=== PATIENT | male | born 1990 | race Caucasian/White ===

== ENCOUNTER 2020-03-18 11:30 | Outpatient (CLI) | payer BC, SELFPAY ==
--- NOTE | 2020-03-18 11:44 | ECG_ITS ---
[facility] Test Date: 2020-03-18 Pat Name: Henrique Cornejo Department: Room: Gender: Male Master Pilot: : 1990 Requested By: Aleah Cooper Order Number: [id number] German MD: Leonora Redding M.D. Interpretive Statements NAME OF STUDY: TREADMILL STRESS TEST INDICATION: Chest Pain, PROCEDURE: At the baseline, the patient's blood pressure was 143/76 with a heart rate of 64. The baseline electrocardiogram showed sinus bradycardia with a normal ST-T's. Some early repolarization changes. The patient exercised for 12 minutes and 31 seconds on a standard Luis protocol. Patient attained a maximum heart rate of 169 beats per minute( 88 % of the maximum predicted heart rate) with a blood pressure at the peak exercise of 214/104 mm Hg. The EKG at the peak exercise revealed no significant changes. Patient did not have any chest pain or any significant cardiac arrhythmias with the exercise During the recovery phase, there were no new changes. Blood pressure at the end of the recovery phase was 197/67 mm Hg with a heart rate of 85 per minute. CONCLUSION: 1. Normal EKG response to treadmill exercise 2. No exercise-induced chest pain or cardiac arrhythmia 3. Good exercise tolerance, attained a maximum of 17.2 METs 4. Hypertensive response to exercise Electronically Signed On 03-20-2020 18:17:15 CDT by Leonora Redding M.D. [email or web address]
[2020-03-18 11:59] VITALS: BMI 27.9
[2020-03-18 12:34] VITALS: BP 197/67; PULSE 96
== END 2020-03-18 11:31 | disposition home or self-care (01) ==
LOC: CDL 11:35
PROVIDERS: PCP Nurse Practitioner Family; Visit Provider Nurse Practitioner Family
DX: R07.9 Chest pain, unspecified (principal)
CPT/HCPCS: 93017

== ENCOUNTER 2021-01-05 08:56 | Emergency (ER) | payer BC, SELFPAY ==
[2021-01-05 08:57] VITALS: BP 169/85; PULSE 62; RESP 18; TEMP 37.5; O2SAT 95; BMI 26.5
--- NOTE | 2021-01-05 09:03 | W.ED.DENTAL ---
HPI - Dental/Oral General: Chief complaint: Dental/Oral Stated complaint: L SIDE FACE SWELLING Time Seen by Provider: 01/05/21 08:56 Source: patient Mode of arrival: ambulatory Limitations: no limitations History of Present Illness: HPI Narrative: Patient is a nice 30-year-old male who presents to ED today with a complaint of left-sided dental pain and facial swelling. He tells me he has had dental pain over the past 3 to 4 days. He states he woke up this morning with swelling to the left side of his face. Patient tells me he has a known impacted wisdom tooth. He reports several broken teeth. MD Complaint: tooth pain Teeth map: 1. cracked and painful molars Onset (ago): day(s) Duration: constant Severity: moderate Relieving factors: nothing Exacerbating factors: nothing Context: history of dental caries Associated symptoms: Reports other (facial swelling ); Denies ear or mastoid pain, fever(s) or odynophagia Review of Systems Const: Denies: fever(s) Eyes: Denies: change in vision ENMT: Reports: dental pain; Denies: throat pain, odynophagia, swelling of lips/tongue, ear or mastoid pain or nasal congestion Card: Denies: chest pain Resp: Denies: dyspnea GI: Denies: nausea or vomiting Musc: Denies: neck pain Skin/Breast: Denies: rash Neuro: Denies: headache(s) Physical Exam Const: COMMON NORMALS: no acute distress, average body habitus, patient oriented x3, no limitations, healthy appearing, alert and well nourished GENERAL APPEARANCE: cooperative ORIENTATION/CONSCIOUSNESS: Yes awake, Yes oriented to person, Yes oriented to place and Yes oriented to time HENMT: COMMON NORMALS: normocephalic and atraumatic HEAD & SCALP: normal to inspection, normocephalic and atraumatic FACE & SINUS: sinuses nontender and other (L sided facial swelling) FACE & SINUS IMAGES: 1. swelling TEETH & GINGIVA: Yes caries, Yes poor dentition and Yes other (broken L lower molars; no obvious abscess formation at this time) Neck/C-Spine: COMMON NORMALS: full ROM, no lymphadenopathy and no meningeal signs Resp: COMMON NORMALS: normal respiratory effort Neuro: COMMON NORMALS: patient oriented x3 SENSORIUM/ORIENTATION: Yes alert, Yes oriented to person, Yes oriented to place and Yes oriented to time MENINGEAL SIGNS: Yes no meningeal signs Course Vital Signs: Vital signs: Vital Signs Temperature 99.5 F 01/05/21 09:12 Pulse Rate 59 L 01/05/21 09:12 Respiratory Rate 18 01/05/21 09:12 Blood Pressure 169/85 01/05/21 09:12 Pulse Oximetry 96 01/05/21 09:12 Discharge Plan Discharge Patient Disposition: Home Clinical Impression: Dental caries Condition: Stable Prescriptions: No Action Tylenol 325 mg Tablet 325 - 650 mg PO Q6H PRN (Reason: Pain) RF: 0 ibuprofen 200 mg Tablet 200 - 400 mg PO Q6H PRN (Reason: Pain) RF: 0 Discharge Orders: Discharge ED (Routine); Ordered 01/05/21 Ordered By: Mindi Borden Patient Instructions: Dental Abscess (ED), Dental Caries (ED), Toothache (ED) Coding Level of Care Code 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
[2021-01-05 09:12] VITALS: BP 169/85; PULSE 59; RESP 18; TEMP 37.5; O2SAT 96
== END 2021-01-05 09:16 | disposition home or self-care (01) ==
PROVIDERS: Emergency Provider Physician Assistant
DX: K02.9 Dental caries, unspecified (principal)
CPT/HCPCS: 99281

== ENCOUNTER 2021-06-25 15:15 | Outpatient (CLI) | payer BC, SELFPAY ==
--- NOTE | 2021-06-25 15:21 | MR_ITS ---
WS: [id number] MRI RIGHT KNEE NONCONTRAST TECHNIQUE: Axial PD, coronal PD fat sat, coronal PD, sagittal PD, and sagittal PD fat-sat images obta ined. CLINICAL INFORMATION: RIGHT KNEE PAIN COMPARISON: None. FINDINGS: Distal quadriceps and patella tendons are intact. Hypertrophic patella. Normal ACL and PCL. No signif icant joint effusion. Normal medial and lateral meniscus. No acute appearing meniscal tears. MCL and LCL appear intact. Nor mal patella. Normal patellar retinaculum. Normal medial and lateral collateral ligaments. Normal popl iteal fossa. MR/MR knee RT wo con* [id number] IMPRESSION: 1. Normal ACL and PCL. 2. Normal medial and lateral meniscus. No acute appearing meniscal tears. 3. Normal medial and lateral collateral ligaments. 4. Normal patella. 5. No significant joint effusion. Outbridge grading:
== END 2021-06-25 15:16 | disposition home or self-care (01) ==
LOC: RADWPI 15:18
PROVIDERS: Visit Provider Physician Assistant
DX: M25.561 Pain in right knee (principal)
CPT/HCPCS: 73721

== ENCOUNTER → 2023-07-29 10:54 | Outpatient (BNVA) | payer OTHER, SELFPAY | PROVIDERS: Visit Provider Registered Nurse | DX: Z02.6 Encounter for examination for insurance purposes (principal) | CPT/HCPCS: 80307 ==

== ENCOUNTER → 2024-06-26 13:52 | Outpatient (BNVA) | payer SELFPAY | PROVIDERS: PCP Registered Nurse; Visit Provider Registered Nurse Neonatal Intensive Care | DX: R50.9 Fever, unspecified (principal); J02.9 Acute pharyngitis, unspecified | CPT/HCPCS: 87400; 87426; 87880 ==

== ENCOUNTER 2024-07-13 18:24 | Emergency (ER) | payer SELFPAY ==
[2024-07-13 18:30] VITALS: BP 156/89; PULSE 80; RESP 18; TEMP 37.7; O2SAT 100; BMI 26.4
== END 2024-07-13 21:11 | disposition home or self-care (01) ==
PROVIDERS: Emergency Provider Family Medicine; PCP Registered Nurse
DX: Z53.21 Procedure and treatment not carried out due to patient leaving prior to being seen by health care provider (principal)

== ENCOUNTER → 2024-07-14 11:29 | Outpatient (BNVA) | payer SELFPAY | PROVIDERS: PCP Registered Nurse | DX: J02.9 Acute pharyngitis, unspecified (principal) | CPT/HCPCS: 87070; 87880 ==

== ENCOUNTER → 2024-07-19 15:01 | Outpatient (BNVA) | payer SELFPAY | PROVIDERS: PCP Registered Nurse; Visit Provider Registered Nurse | DX: J02.9 Acute pharyngitis, unspecified (principal); R59.0 Localized enlarged lymph nodes | CPT/HCPCS: 85025; 86308 ==

== ENCOUNTER → 2024-12-20 10:09 | Outpatient (BNVA) | payer BC, MEDICAID, SELFPAY | PROVIDERS: PCP Registered Nurse; Visit Provider Registered Nurse | DX: J11.1 Influenza due to unidentified influenza virus with other respiratory manifestations (principal) | CPT/HCPCS: 87400; 87426 ==